=== PATIENT | female | born 1995 | race Caucasian/White ===

== ENCOUNTER 2017-07-18 15:57 | Emergency (ER) | payer SELFPAY ==
[~2017-07-18] VITALS: Ht 157.5 cm; Wt 90.3 kg
[2017-07-18 16:01] VITALS: Ht 157.5 cm; Wt 90.3 kg
[2017-07-18 17:18] VITALS: BP 126/72
== END 2017-07-18 17:18 | disposition home or self-care (01) ==
LOC: ED 15:57
DX: S93.401A Sprain of unspecified ligament of right ankle, initial encounter (principal); W10.8XXA Fall (on) (from) other stairs and steps, initial encounter; Y93.89 Activity, other specified; Y92.89 Other specified places as the place of occurrence of the external cause; Y99.8 Other external cause status